=== PATIENT | male | born 1995 | race Caucasian/White ===

== ENCOUNTER 2019-03-10 07:29 | Inpatient (IN) | payer OTHER ==
[2019-03-10] MEDS ORDERED: ONDANSETRON 4 MG/2 ML VIAL IVP STA (07:55)
[2019-03-10] MEDS ORDERED: SODIUM CHLORIDE 0.9% 1,000 ML IV STA (07:55)
[2019-03-10] MEDS ORDERED: SODIUM CHLORIDE 0.9% 500 ML 500 ML IV STA (07:55)
[2019-03-10 08:12] LABS: Basophils % (A) 0 %; Eosinophils # (A) 0.1 k/uL (0-0.7); Eosinophils % (A) 1 %; HCT 45.3 % (39.0-53.0); HGB 15.7 gm/dL (13.0-17.5); Lymphocytes # (A) 0.8 k/uL (1.0-4.8); Lymphocytes % (A) 6 %; MCH 32.3 pg (25.0-35.0); MCHC 34.7 g/dL (31.0-37.0); Mean Platelet Volume 6.3; Monocytes # (A) 0.7 k/uL (0-1.0); Monocytes % (A) 5 %; Neutrophils % (A) 86 %; Platelet Count 265 k/uL (150-450); RBC 4.87 m/uL (4.30-5.90); RDW 12.5 % (11.5-15.5); WBC 13.9 k/uL (3.8-10.6)
--- NOTE | 2019-03-10 08:18 | ED ---
Chest Pain HPI - General Source: patient, family, RN notes reviewed Mode of arrival: wheelchair Limitations: no limitations <Louis Lainez - Last Filed: 03/10/19 08:37> <Raghavendra Britton - Last Filed: 03/10/19 08:44> - General Chief Complaint: Chest Pain Stated Complaint: Chest pain/lt arm pain Time Seen by Provider: 03/10/19 07:44 - History of Present Illness Initial Comments: This is a 24-year-old male presents emergency Department with chief complaint chest pain, nausea vomiting. Patient states symptoms started on Sunday with some nausea vomiting diarrhea and he felt that it was related to chicken salad which he ate. Patient states that he did not feel well woke up Sunday still did not feel well but improved throughout the day. Patient states he returned yesterday and he woke up with chest pain today. Patient states he feels very achy had severe chest pain in which he states it was so intense he could not breathe. Patient states that has improved some he did take some Motrin prior arrival. Patient states there is slight nausea currently no localized abdominal pain. Patient denies any known fever. Patient states he has a benign past medical history that he current medications known drug ALLERGIES. (Louis Lainez) - Related Data Allergies Allergy/AdvReac Type Severity Reaction Status Date / Time No Known Allergies Allergy Verified 03/10/19 07:37 Review of Systems ROS Other: All systems not noted in ROS Statement are negative. <Louis Lainez - Last Filed: 03/10/19 08:37> ROS Other: All systems not noted in ROS Statement are negative. <Raghavendra Britton - Last Filed: 03/10/19 08:44> ROS Statement: Those systems with pertinent positive or pertinent negative responses have been documented in the HPI. EKG Findings - EKG Comments: EKG Findings:: EKG: Normal sinus rhythm with sinus arrhythmia, ST segment elevation in the lateral precordial leads as well as lead 1, 2, aVL. There is DC depression in lead 1 and lead II <Raghavendra Britton - Last Filed: 03/10/19 08:44> Past Medical History Past Medical History: No Reported History Additional Past Medical History / Comment(s): fx left arm History of Any Multi-Drug Resistant Organisms: None Reported Past Surgical History: No Surgical Hx Reported Smoking Status: Current every day smoker Past Alcohol Use History: None Reported Past Drug Use History: None Reported <MigelLouis - Last Filed: 03/10/19 08:37> General Exam Limitations: no limitations General appearance: alert, in no apparent distress Head exam: Present: atraumatic, normocephalic, normal inspection Eye exam: Present: normal appearance, PERRL, EOMI. Absent: scleral icterus, conjunctival injection, periorbital swelling ENT exam: Present: normal exam, normal oropharynx, mucous membranes moist Neck exam: Present: normal inspection. Absent: tenderness, meningismus, lymphadenopathy Respiratory exam: Present: normal lung sounds bilaterally. Absent: respiratory distress, wheezes, rales, rhonchi, stridor Cardiovascular Exam: Present: regular rate, normal rhythm, normal heart sounds. Absent: systolic murmur, diastolic murmur, rubs, gallop, clicks GI/Abdominal exam: Present: soft, normal bowel sounds. Absent: distended, tenderness, guarding, rebound, rigid Neurological exam: Present: alert, oriented X3 Skin exam: Present: warm, dry, intact, normal color. Absent: rash <Louis Lainez - Last Filed: 03/10/19 08:37> Course <Raghavendra Britton - Last Filed: 03/10/19 08:44> Vital Signs 03/10/19 07:33 Temperature 97.4 F L Pulse Rate 74 Respiratory 18 Rate Blood Pressure 104/71 O2 Sat by Pulse 100 Oximetry - Reevaluation(s) Reevaluation #1: 03/10/19 08:08 Case discussed with cardiology Dr. Patel, regarding EKG changes. Recommends stat echo. (Raghavendra Britton) Chest Pain MDM <Louis Lainez - Last Filed: 03/10/19 08:37> <Raghavendra Britton - Last Filed: 03/10/19 08:44> - MDM 24-year-old male presented for chest pain, nausea vomiting viral illness. Patient EKG shows some ST elevation. Impressions. There, I did discuss case with Dr. Serna Cardiologists and which the patient was evaluated in the [facility] department by Fatimah laureano. Patient's symptoms are consistent with pericarditis. Patient will be admitted at this time for further evaluation. (Louis Lainez) Patient presenting with nausea vomiting and development of chest pain over the past 24 hours. Pain is sharp. Radiates to his left arm. It was significantly improved with Motrin at home. His EKG is concerning showing diffuse ST segment elevation and DC depression. Given the patient's age and presenting signs and symptoms of suspect this is likely pericarditis. I discussed case with cardiology initiated workup including laboratory testing, chest x-ray, stat echo. Patient will be admitted awaiting laboratory testing. He was evaluated by cardiology in the emergency department. Case discussed with Dr. Brady, regarding admission. (Raghavendra Britton) Disposition <Louis Lainez - Last Filed: 03/10/19 08:37> Is patient prescribed a controlled substance at d/c from ED?: No Decision to Admit Reason: Admit from EC Decision Date: 03/10/19 Decision Time: 08:44 <Raghavendra Britton - Last Filed: 03/10/19 08:44> Clinical Impression: Acute pericarditis Disposition: ADMITTED IP TO THIS [facility] Condition: Stable Referrals: Hi Lanier MD [Primary Care Provider] - 1-2 days
[2019-03-10 08:22] LABS: ALT 24 U/L (21-72); AST 56 U/L (17-59); African American GFR (CKD) >90 (>60 ml/min/1.73 sqM); Albumin 4.1 g/dL (3.5-5.0); Alkaline Phosphatase 92 U/L (38-126); Anion Gap 11 mmol/L; Blood Urea Nitrogen 12 mg/dL (9-20); Calcium 9.5 mg/dL (8.4-10.2); Carbon Dioxide 27 mmol/L (22-30); Chloride 102 mmol/L (98-107); Glucose 133 mg/dL (74-99); Magnesium 1.8 mg/dL (1.6-2.3); Non-African American GFR(CKD) >90 (>60 ml/min/1.73 sqM); Sodium 140 mmol/L (137-145); Total Bilirubin 1.8 mg/dL (0.2-1.3); Total Protein 7.4 g/dL (6.3-8.2)
[2019-03-10] MEDS ORDERED: ONDANSETRON 4 MG/2 ML VIAL IVP PRN (08:39)
[2019-03-10 08:41] LABS: Partial Thromboplastin Time 23.3 sec (22.0-30.0); Prothrombin Time 10.3 sec (9.0-12.0)
--- NOTE | 2019-03-10 08:41 | XR ---
EXAMINATION TYPE: XR chest 1V DATE OF EXAM: 03/10/2019 COMPARISON: NONE HISTORY: Nausea, vomiting, and chest pain for one week TECHNIQUE: Single frontal view of the chest is obtained. FINDINGS: There is no focal air space opacity, pleural effusion, or pneumothorax seen. The cardiac silhouette size is within normal limits. The osseous structures are intact. IMPRESSION: No acute process.
[2019-03-10] MEDS ORDERED: IBUPROFEN 600 MG TAB PO STA (08:52)
--- NOTE | 2019-03-10 08:54 | P.CRDCN ---
History of Present Illness Consult date: 03/10/19 Consult reason: chest pain Chief complaint: Chest pain History of present illness: This is a pleasant 24-year-old gentleman who has no prior documented history of hypertension, no diabetes, no hyperlipidemia, he is a nonsmoker, presents to the hospital with symptoms of midsternal chest pain with associated shortness of breath. He states that the pain started on Sunday, preceding that patient did have an entire night of vomiting and diarrhea, he also complained of feeling chilled. Patient has been taking ibuprofen on a daily basis, he states that it did help temporarily with the pain, pain he was having the sharp in nature, worsened significantly when he took a deep breath, he also states that he felt pain in his left arm. Because of the persistence of the symptoms, along with the fact that he now became short of breath he came to the emergency room for further evaluation and treatment. EKG performed in the emergency room showed a normal sinus rhythm with some ST elevation noted in the lateral leads, lead 2, and mild elevation in the anterior leads. There was also some MD depression noted in the lateral leads. Chest x-ray was normal. Blood pressure 104/70 with a heart rate in the 70s, 100% on room air. Afebrile. White blood cell count is elevated at 13.9, hemoglobin 15.7, platelet count 265. D-dimer 0.28. Sodium 140, potassium 4.0, BUN 12, creatinine 0.8. Magnesium 1.8. Total bilirubin 1.8. AST and ALT are normal. C-reactive protein elevated at 40.7. Sedimentation rate in troponin have been ordered, no results on those as of yet. A stat echocardiogram with Doppler study has also been requested. At the time of my examination this morning he denies having any chest discomfort, he did state that he took some ibuprofen prior to coming to the emergency room. He does feel chilled this morning. Past Medical History Past Medical History: No Reported History Additional Past Medical History / Comment(s): fx left arm History of Any Multi-Drug Resistant Organisms: None Reported Past Surgical History: No Surgical Hx Reported Smoking Status: Current every day smoker Past Alcohol Use History: None Reported Past Drug Use History: None Reported Medications and Allergies Allergies Allergy/AdvReac Type Severity Reaction Status Date / Time No Known Allergies Allergy Verified 03/10/19 07:37 Physical Exam Vitals: Vital Signs Temp Pulse Resp BP Pulse Ox 03/10/19 07:33 97.4 F L 74 18 104/71 100 Intake and Output 03/09/19 03/10/19 03/10/19 22:59 06:59 14:59 Other: Weight 90.718 kg PHYSICAL EXAMINATION: GENERAL: 24-year-old gentleman in no acute distress at the time of my examination HEENT: Head is atraumatic, normocephalic. Pupils equal, round. Sclera anicteric. Conjunctiva are clear. Mucous membranes of the mouth are moist. Neck is supple. There is no elevated jugular venous pressure. No carotid brui t is heard. HEART EXAMINATION: Heart S1, S2 systolic murmur. CHEST EXAMINATION: Lungs are clear to auscultation and precussion. No chest wall tenderness is noted on palpation or with deep breathing. ABDOMEN: Soft, nontender. Bowel sounds are heard. No organomegaly noted. EXTREMITIES: 2+ peripheral pulses with no evidence of peripheral edema and no calf tenderness noted. NEUROLOGIC patient is awake, alert and oriented 3 . . Results 03/10/19 08:00 03/10/19 08:00 Cardiac Enzymes 03/10/19 Range/Units 08:00 AST 56 (17-59) U/L Coagulation 03/10/19 Range/Units 08:00 PT 10.3 (9.0-12.0) sec APTT 23.3 (22.0-30.0) sec CBC 03/10/19 Range/Units 08:00 WBC 13.9 H (3.8-10.6) k/uL RBC 4.87 (4.30-5.90) m/uL Hgb 15.7 (13.0-17.5) gm/dL Hct 45.3 (39.0-53.0) % Plt Count 265 (150-450) k/uL Comprehensive Metabolic Panel 03/10/19 Range/Units 08:00 Sodium 140 (137-145) mmol/L Potassium 4.0 (3.5-5.1) mmol/L Chloride 102 (98-107) mmol/L Carbon Dioxide 27 (22-30) mmol/L BUN 12 (9-20) mg/dL Creatinine 0.88 (0.66-1.25) mg/dL Glucose 133 H (74-99) mg/dL Calcium 9.5 (8.4-10.2) mg/dL AST 56 (17-59) U/L ALT 24 (21-72) U/L Alkaline Phosphatase 92 (38-126) U/L Total Protein 7.4 (6.3-8.2) g/dL Albumin 4.1 (3.5-5.0) g/dL Current Medications Generic Name Dose Route Start Last Admin Trade Name Freq PRN Reason Stop Dose Admin Sodium Chloride 1,000 mls @ 999 mls/hr 03/10/19 07:55 03/10/19 08:18 Saline 0.9% IV 03/10/19 08:55 999 mls/hr .Q1H1M STA Administration Ondansetron HCl 4 mg 03/10/19 08:39 Zofran IVP Q8HR PRN Nausea And Vomiting Intake and Output 03/09/19 03/10/19 03/10/19 22:59 06:59 14:59 Other: Weight 90.718 kg Patient Weight 03/11/19 06:59 Weight 90.718 kg 03/10/19 08:00 03/10/19 08:00 EKG Interpretations (text) EKG on presentation here showed normal sinus rhythm with ST elevation noted in the lateral leads, there is some inferior ST elevation noted in V2 and mild anterior ST elevation with a mild MD depression noted in the lateral leads. Assessment and Plan Plan: Assessment and plan #1 symptoms of sharp chest pain with radiation into the left arm, pleuritic in nature, associated with recent vomiting and diarrhea, possible viral illness, possible viral pericarditis #2 significant vomiting and diarrhea with associated chills Plan We will obtain a stat echocardiogram with Doppler study, we will also request a stat sed rate to be obtained, troponins have been ordered, we will start the patient on nonsteroidals along with colchicine. Further recommendations to follow. DNP note has been reviewed, I agree with a documented findings and plan of care. Patient was seen and examined.
[2019-03-10] MEDS: COLCHICINE 0.6 MG EACH PO SCH ×2 (10:58→20:28)
--- NOTE | 2019-03-10 13:45 | ECHOF ---
Referral Reason:Chest pain MEASUREMENTS -------- HEIGHT: 188.0 cm WEIGHT: 90.7 kg BP: RVIDd: 2.5 cm (< 3.3) IVSd: 0.9 cm (0.6 - 1.1) LVIDd: 5.2 cm (3.9 - 5.3) LVPWd: 1.1 cm (0.6 - 1.1) IVSs: 1.4 cm LVIDs: 3.8 cm LVPWs: 1.6 cm LA Diam: 3.3 cm (2.7 - 3.8) LAESV Index (A-L): 22.19 ml/m Ao Diam: 3.0 cm (2.0 - 3.7) AV Cusp: 2.2 cm (1.5 - 2.6) MV EXCURSION: 20.022 mm (> 18.000) MV EF SLOPE: 163 mm/s (70 - 150) EPSS: 0.6 cm MV E Silverio: 0.85 m/s MV DecT: 135 ms MV A Silverio: 0.78 m/s MV E/A Ratio: 1.08 RAP: 5.00 mmHg RVSP: 22.70 mmHg TAPSE: 17.70 mm FINDINGS -------- Sinus rhythm. This was a technically good study. The left ventricular size is normal. There is mild concentric left ventricular hypertrophy. Overa ll left ventricular systolic function is mild-moderately impaired with, an EF between 40 - 45 %. The right ventricle is mildly enlarged. Normal LA size by volume 22+/-6 ml/m2. The right atrium is normal in size. Interatrial and interventricular septum intact. The aortic valve is trileaflet and appears structurally normal. The mitral valve leaflets are mildly thickened. Moderate mitral regurgitation is present. Mild tricuspid regurgitation present. Right ventricular systolic pressure is normal at < 35 mmHg. There is no pulmonic regurgitation present. The aortic root size is normal. Normal inferior vena cava with less than 50% inspiratory collapse consistent with estimated right atr ial pressure of 15 mmHg. The inferior vena cava is mildly dilated. There is no pericardial effusion. CONCLUSIONS -------- 1. Sinus rhythm. 2. This was a technically good study. 3. The left ventricular size is normal. 4. There is mild concentric left ventricular hypertrophy. 5. Overall left ventricular systolic function is mild-moderately impaired with, an EF between 40 - 45 %. 6. The right ventricle is mildly enlarged. 7. Normal LA size by volume 22+/-6 ml/m2. 8. The right atrium is normal in size. 9. Interatrial and interventricular septum intact. 10. The aortic valve is trileaflet and appears structurally normal. 11. The mitral valve leaflets are mildly thickened. 12. Moderate mitral regurgitation is present. 13. Mild tricuspid regurgitation present. 14. Right ventricular systolic pressure is normal at < 35 mmHg. 15. There is no pulmonic regurgitation present. 16. The aortic root size is normal. 17. Normal inferior vena cava with less than 50% inspiratory collapse consistent with estimated right atrial pressure of 15 mmHg. 18. The inferior vena cava is mildly dilated. 19. There is no pericardial effusion. RESEARCH CHEMIST: Yamile Pham RDCS
--- NOTE | 2019-03-10 16:55 | P.HPIM ---
History of Present Illness H&P Date: 03/10/19 Chief Complaint: Chest pain, left arm weakness, nausea, vomiting,SOB This is a 24-year-old gentleman with a benign past medical history, presented to the ER with complaints of nausea, vomiting, chest pain, shortness of breath, left arm pain. Symptoms originated on Sunday night after eating a chicken salad, though he had food poisoning. Symptoms continued into Sunday with nausea, bloating, diarrhea accompanied by migraine headache and further development of sharp chest pain, later that night. Sunday morning continued to have sharp chest pain accompanied by significant shortness of breath, left arm weakness and difficulty talking. Symptoms worsened with inspiration Consumed Motrin and Proceeded to the ER. Prior to the ER. Positive chills, Denies fever. EKG reporting sinus rhythm with sinus arrhythmia, ST segment elevation in the lateral leads as well as leads 1,2 and aVL. Depression leads 1 and 2. Chest x-ray reported no acute process, no pleural effusion, no pneumothorax. Echo reporting mild to-moderately impaired LV function with EF 40-45%, moderate mitral regurgitation. Afebrile, WBC 13.9, vital signs stable, maintaining O2 sats in the high 90s on room air. T bili 1.8, troponin 5.130, C-reactive protein 40.7. Cardiology consulted. Maintained on IV fluid hydration. Colchicine, ibuprofen initiated. Review of Systems ROS Other: All systems not noted in ROS Statement are negative. ROS Statement: Those systems with pertinent positive or pertinent negative responses have been documented in the HPI. Past Medical History Past Medical History: No Reported History Additional Past Medical History / Comment(s): fx left arm History of Any Multi-Drug Resistant Organisms: None Reported Past Surgical History: No Surgical Hx Reported Additional Past Surgical History / Comment(s): L arm fracture with 2 settings with anesthesia. Past Anesthesia/Blood Transfusion Reactions: No Reported Reaction Smoking Status: Never smoker - Past Family History Father Family Medical History: Hyperlipidemia, Hypertension Mother Additional Family Medical History / Comment(s): Recovering alcoholic, PTSD Medications and Allergies Home Medications Medication Instructions Recorded Confirmed Type No Known Home Medications 03/10/19 03/10/19 History Allergies Allergy/AdvReac Type Severity Reaction Status Date / Time No Known Allergies Allergy Verified 03/10/19 08:59 Physical Exam Vitals: Vital Signs Temp Pulse Pulse Resp BP BP Pulse Ox 03/10/19 11:52 96 16 95/63 99 03/10/19 08:37 70 18 102/78 98 03/10/19 07:33 97.4 F L 74 18 104/71 100 Intake and Output 03/09/19 03/10/19 03/10/19 22:59 06:59 14:59 Other: Weight 90.718 kg PHYSICAL EXAM: VITAL SIGNS: As above GENERAL: Sitting up in stretcher, no acute distress HEENT: Conjunctivae normal. eyes normal. NECK: No JVD. No thyroid enlargement. No LNs CARDIOVASCULAR: S1, S2 regular. Systolic murmur RESPIRATION: Breath sounds diminished in the bases. No rhonchi or crackles. No bronchial breathing. No chest wall tenderness ABDOMEN: Soft, nontender . No guarding. no masses palpable. No ascites, No hepatosplenomegaly.Bowel sounds heard. LEGS: No edema. no swelling PSYCHIATRY: Alert and oriented X3, mood and affect normal. NERVOUS SYSTEM: Cranial N 2-12 grossly normal. Moves all 4 limbs. No focal deficits. Strength and sensation grossly intact.. Skin: no lesions, no rash Joints: No active swelling. No inflammation. Lymphatic system. No LN neck axilla. Results CBC & Chem 7: 03/10/19 08:00 03/10/19 08:00 Labs: Abnormal Lab Results - Last 24 Hours (Table) 03/10/19 03/10/19 03/10/19 Range/Units 08:00 08:00 08:00 WBC 13.9 H (3.8-10.6) k/uL Neutrophils # 12.0 H (1.3-7.7) k/uL Lymphocytes # 0.8 L (1.0-4.8) k/uL Glucose 133 H (74-99) mg/dL Total Bilirubin 1.8 H (0.2-1.3) mg/dL Troponin I 5.130 H* (0.000-0.034) ng/mL C-Reactive Protein (<10.0) mg/L 03/10/19 Range/Units 08:00 WBC (3.8-10.6) k/uL Neutrophils # (1.3-7.7) k/uL Lymphocytes # (1.0-4.8) k/uL Glucose (74-99) mg/dL Total Bilirubin (0.2-1.3) mg/dL Troponin I (0.000-0.034) ng/mL C-Reactive Protein 40.7 H (<10.0) mg/L Thrombosis Risk Factor Assmnt - Choose All That Apply Any of the Below Risk Factors Present?: No Other Risk Factors: No Other congenital or acquired thrombophilia - If yes, enter type in comment: No Thrombosis Risk Factor Assessment Level: Very Low Risk Assessment and Plan Assessment: Acute pericarditis, possibly viral pericarditis Mild to-moderately impaired LV function with EF 40-45%, moderate mitral regurgitation per echo Plan: Continue on current medication regime, monitoring and symptomatically treatment. Maintain IV fluid hydration, ibuprofen and colchicine. Rule out influenza A/B. GI prophylaxis with Protonix. The impression and plan of care has been dictated as directed. : I performed a history and examination of this patient, discussed the same with the dictator. I agree with the dictator's note ,documented as a scribe. Any additional findings or plans will be noted.
[2019-03-10] MEDS: PANTOPRAZOLE 40 MG/10 ML VIAL IVP SCH (17:12)
[2019-03-10] MEDS: IBUPROFEN 600 MG TAB PO SCH ×2 (17:13→20:28)
[2019-03-10 17:24] LABS: Appearance,Urine Clear (Clear); Bilirubin,Urine Negative (Negative); Blood,Urine Negative (Negative); Color,Urine Yellow; Glucose,Urine (UA) 1+ (Negative); Ketones,Urine 1+ (Negative); Leukocyte Esterase,Urine Negative (Negative); Nitrite,Urine Negative (Negative); Protein,Urine Trace (Negative); Specific Gravity,Urine 1.016 (1.001-1.035)
[2019-03-11 06:25] LABS: Basophils % (A) 0 %; Eosinophils # (A) 0.1 k/uL (0-0.7); Eosinophils % (A) 2 %; HCT 39.8 % (39.0-53.0); HGB 13.8 gm/dL (13.0-17.5); Lymphocytes # (A) 1.7 k/uL (1.0-4.8); Lymphocytes % (A) 29 %; MCH 32.9 pg (25.0-35.0); MCHC 34.7 g/dL (31.0-37.0); MCV 94.8 fL (80.0-100.0); Mean Platelet Volume 7.4; Monocytes # (A) 0.5 k/uL (0-1.0); Monocytes % (A) 7 %; Neutrophils # (A) 3.5 k/uL (1.3-7.7); Neutrophils % (A) 58 %; Platelet Count 226 k/uL (150-450); RDW 12.8 % (11.5-15.5); WBC 6.1 k/uL (3.8-10.6)
[2019-03-11 06:38] LABS: African American GFR (CKD) >90 (>60 ml/min/1.73 sqM); Anion Gap 6 mmol/L; Blood Urea Nitrogen 10 mg/dL (9-20); Calcium 8.9 mg/dL (8.4-10.2); Carbon Dioxide 27 mmol/L (22-30); Chloride 109 mmol/L (98-107); Glucose 93 mg/dL (74-99); Non-African American GFR(CKD) >90 (>60 ml/min/1.73 sqM); Potassium 4.1 mmol/L (3.5-5.1); Sodium 142 mmol/L (137-145)
[2019-03-11] MEDS: PANTOPRAZOLE 40 MG/10 ML VIAL IVP SCH (08:01)
[2019-03-11] MEDS: IBUPROFEN 600 MG TAB PO SCH ×3 (08:01→20:32)
[2019-03-11] MEDS: COLCHICINE 0.6 MG EACH PO SCH ×2 (08:02→20:32)
[2019-03-11] MEDS ORDERED: SODIUM CHLORIDE 0.9% 1,000 ML in EMPTY BAG 1 BAG IV ONE (11:45)
[2019-03-11] MEDS ORDERED: ALPRAZolam 0.5 MG TAB PO PRN (11:45)
[2019-03-11] MEDS ORDERED: ATORVASTATIN 80 MG TAB PO STA (11:45)
[2019-03-11] MEDS ORDERED: ASPIRIN 325 MG TAB PO STA (11:45)
[2019-03-11] MEDS ORDERED: ALPRAZolam 0.25 MG TAB PO PRN (11:45)
[2019-03-11] MEDS ORDERED: NITROGLYCERIN SL TABS 0.4 MG TAB SUBLINGUAL PRN (11:45)
--- NOTE | 2019-03-11 12:03 | PN ---
PROGRESS NOTE This patient was admitted with symptoms of chest pain which was suggestive of acute pericarditis and myocarditis. Echocardiogram reveals mild degree of generalized hypokinesia. The patient's initial troponin came back at 5.1. Repeat troponin is high at 4.4. The patient is feeling better. Chest pain is improved. C-reactive protein was elevated. Sedimentation rate was 15. Patient is feeling better. Repeat EKG shows some T-wave inversions in 1 and aVL. This patient's overall picture is suggestive of myopericarditis discussed with the family members, but in view of the significantly elevated troponin, we will recommend to proceed with a cardiac catheterization to rule out any underlying significant coronary artery disease. The procedure and the risks were fully explained to the patient and he understands well. The patient had an intermittent PVCs and some ventricular couplet. One episode of ventricular couplet was noted. We will start the patient on metoprolol 12.5 mg b.i.d. TUAN / ABHIJIT: [id number] /
[2019-03-11] MEDS: METOPROLOL TARTRATE 12.5 MG TAB PO SCH ×2 (12:47→20:32)
--- NOTE | 2019-03-11 15:51 | P.PN ---
Subjective Progress Note Date: 03/11/19 This is a 24-year-old gentleman with a benign past medical history, presented to the ER with complaints of nausea, vomiting, chest pain, shortness of breath, left arm pain. Symptoms originated on Sunday night after eating a chicken salad, though he had food poisoning. Symptoms continued into Sunday with nausea, bloating, diarrhea accompanied by migraine headache and further development of sharp chest pain, later that night. Sunday morning continued to have sharp chest pain accompanied by significant shortness of breath, left arm weakness and difficulty talking. Symptoms worsened with inspiration Consumed Motrin and Proceeded to the ER. Prior to the ER. Positive chills, Denies fever. EKG reporting sinus rhythm with sinus arrhythmia, ST segment elevation in the lateral leads as well as leads 1,2 and aVL. Depression leads 1 and 2. Chest x-ray reported no acute process, no pleural effusion, no pneumothorax. Echo reporting mild to-moderately impaired LV function with EF 40-45%, moderate mitral regurgitation. Afebrile, WBC 13.9, vital signs stable, maintaining O2 sats in the high 90s on room air. T bili 1.8, troponin 5.130, C-reactive protein 40.7. Cardiology consulted. Maintained on IV fluid hydration. Colchicine, ibuprofen initiated. 03/11/2019 Feeling better today, denies chest pain, palpitations or shortness of breath. Repeat troponin 4.4, elevated C-reactive protein, sed rate 15. Repeat EKG ordered reported as T-wave inversions in 1 and aVL per cardiology suggestive of myopericarditis. Telemetry reporting PVCs, couplets. Beta kenji initiated as per cardiology. Scheduled for cardiac catheterization tomorrow. Objective - Vital Signs Vital signs: Vital Signs Temp 97.7 F 03/11/19 08:00 Pulse 97 03/11/19 08:00 Resp 16 03/11/19 08:00 BP 103/52 03/11/19 08:00 Pulse Ox 99 03/11/19 08:00 Intake & Output 03/10/19 03/11/19 03/11/19 18:59 06:59 18:59 Intake Total 240 Balance 240 Weight 90.718 kg 91.7 kg Intake: Oral 240 Other: # Voids 1 2 - Exam VITAL SIGNS: As above GENERAL: Sitting up in stretcher, no acute distress HEENT: Conjunctivae normal. eyes normal. NECK: No JVD. No thyroid enlargement. No LNs CARDIOVASCULAR: S1, S2 regular. Systolic murmur RESPIRATION: Breath sounds diminished in the bases. No rhonchi or crackles. No bronchial breathing. No chest wall tenderness ABDOMEN: Soft, nontender . No guarding. no masses palpable. No ascites, No hepatosplenomegaly.Bowel sounds heard. LEGS: No edema. no swelling PSYCHIATRY: Alert and oriented X3, mood and affect normal. NERVOUS SYSTEM: Cranial N 2-12 grossly normal. Moves all 4 limbs. No focal deficits. Strength and sensation grossly intact.. Skin: no lesions, no rash Joints: No active swelling. No inflammation. Lymphatic system. No LN neck axilla. - Labs CBC & Chem 7: 03/11/19 05:45 03/11/19 05:45 Labs: Abnormal Lab Results - Last 24 Hours (Table) 03/10/19 03/11/19 03/11/19 Range/Units 14:59 05:45 05:45 RBC 4.20 L (4.30-5.90) m/uL Chloride 109 H (98-107) mmol/L Urine Protein Trace H (Negative) Urine Glucose (UA) 1+ H (Negative) Urine Ketones 1+ H (Negative) Assessment and Plan Assessment: Acute myopericarditis, possibly viral pericarditis Mild to-moderately impaired LV function with EF 40-45%, moderate mitral regurgitation per echo Plan: Continue on current medication regime, monitoring and symptomatically treatment. Scheduled for cardiac catheterization tomorrow. Continue on IV fluid hydration, ibuprofen and colchicine. Follow closely with cardiology. The impression and plan of care has been dictated as directed. : I performed a history and examination of this patient, discussed the same with the dictator. I agree with the dictator's note ,documented as a scribe. Any additional findings or plans will be noted.
[2019-03-11] MEDS ORDERED: Magnesium Replacement Protocol 1 EACH MISC MISCELLANE PRN (19:02)
[2019-03-12] MEDS: METOPROLOL TARTRATE 12.5 MG TAB PO SCH ×2 (05:29→21:30)
[2019-03-12] MEDS: PANTOPRAZOLE 40 MG/10 ML VIAL IVP SCH (05:29)
[2019-03-12] MEDS ORDERED: ASPIRIN 325 MG TAB PO ONE (06:00)
[2019-03-12] MEDS ORDERED: ATORVASTATIN 80 MG TAB PO ONE (06:00)
[2019-03-12] MEDS: COLCHICINE 0.6 MG EACH PO SCH ×2 (06:03→21:30)
[2019-03-12] MEDS: IBUPROFEN 600 MG TAB PO SCH ×3 (10:58→21:27)
[2019-03-12] MEDS ORDERED: VERAPAMIL 2.5 MG/ML 2 ML AMP ONE (14:05)
[2019-03-12] MEDS ORDERED: LIDOCAINE 1% INJ 10MG/ML (20 ML MDV) ONE (14:05)
[2019-03-12] MEDS ORDERED: fentaNYL (PF) 50 MCG/ML 2 ML AMP ONE (14:05)
[2019-03-12] MEDS ORDERED: IV FLUID CONTINUATION 1,000 ML IV ONE (14:05)
[2019-03-12] MEDS ORDERED: fentaNYL (PF) 50 MCG/ML 2 ML AMP IV ONE (14:18)
[2019-03-12] MEDS ORDERED: MIDAZOLAM 2 MG/2 ML VIAL IV ONE (14:19)
[2019-03-12] MEDS ORDERED: HEPARIN SODIUM 1,000 UN/ML (10ML VL) ONE (14:20)
[2019-03-12] MEDS ORDERED: LIDOCAINE 1% INJ 10MG/ML (20 ML MDV) SQ ONE (14:21)
[2019-03-12] MEDS: VERAPAMIL SYRINGE (5 MG/10 ML) INTRAARTER ONE ×2 (14:23→14:31)
[2019-03-12] MEDS ORDERED: HYDROmorphone 1 MG/ML 1 ML SYRINGE ONE (14:24)
[2019-03-12] MEDS ORDERED: HEPARIN SODIUM 1,000 UN/ML (10ML VL) IV ONE (14:25)
[2019-03-12] MEDS ORDERED: HYDROmorphone 1 MG/ML 1 ML SYRINGE IVP ONE (14:26)
[2019-03-12] MEDS ORDERED: IOPAMIDOL-370 150ML BTL INJ ONE (14:31)
[2019-03-12] MEDS ORDERED: RX INFO: IV CONTRAST WAS GIVEN 1 EACH MISC MISCELLANE PRN (14:36)
[2019-03-12] MEDS ORDERED: SODIUM CHLORIDE 0.9% 1,000 ML IV SCH (14:45)
--- NOTE | 2019-03-12 15:47 | P.PN ---
Subjective Progress Note Date: 03/12/19 This is a 24-year-old gentleman with a benign past medical history, presented to the ER with complaints of nausea, vomiting, chest pain, shortness of breath, left arm pain. Symptoms originated on Sunday night after eating a chicken salad, though he had food poisoning. Symptoms continued into Sunday with nausea, bloating, diarrhea accompanied by migraine headache and further development of sharp chest pain, later that night. Sunday morning continued to have sharp chest pain accompanied by significant shortness of breath, left arm weakness and difficulty talking. Symptoms worsened with inspiration Consumed Motrin and Proceeded to the ER. Prior to the ER. Positive chills, Denies fever. EKG reporting sinus rhythm with sinus arrhythmia, ST segment elevation in the lateral leads as well as leads 1,2 and aVL. Depression leads 1 and 2. Chest x-ray reported no acute process, no pleural effusion, no pneumothorax. Echo reporting mild to-moderately impaired LV function with EF 40-45%, moderate mitral regurgitation. Afebrile, WBC 13.9, vital signs stable, maintaining O2 sats in the high 90s on room air. T bili 1.8, troponin 5.130, C-reactive protein 40.7. Cardiology consulted. Maintained on IV fluid hydration. Colchicine, ibuprofen initiated. 03/11/2019 Feeling better today, denies chest pain, palpitations or shortness of breath. Repeat troponin 4.4, elevated C-reactive protein, sed rate 15. Repeat EKG ordered reported as T-wave inversions in 1 and aVL per cardiology suggestive of myopericarditis. Telemetry reporting PVCs, couplets. Beta kenji initiated as per cardiology. Scheduled for cardiac catheterization tomorrow. 03/12/2019 denies chest pain, palpitations or shortness of breath. Denies lightheadedness, dizziness or focal deficits. NPO.Scheduled for cardiac cath today. Objective - Vital Signs Vital signs: Vital Signs Temp 98.1 F 03/12/19 14:51 Pulse 71 03/12/19 14:51 Resp 18 03/12/19 14:51 BP 110/60 03/12/19 15:21 Pulse Ox 99 03/12/19 14:51 Intake & Output 03/11/19 03/12/19 03/12/19 18:59 06:59 18:59 Intake Total 1040 1000 100 Balance 1040 1000 100 Weight 89.3 kg Intake: IV 100 Intake, IV Titration 1000 Amount Sodium Chloride 0.9% 1, 1000 000 ml In Empty Bag 1 bag @ 1 ML/KG/HR 91.7 mls/hr IV .[id number] ONE Rx#: [id number] Oral 1040 Other: # Voids 1 1 - Exam VITAL SIGNS: As above GENERAL: Sitting up in bed, no acute distress HEENT: Conjunctivae normal. eyes normal. Oral mucosa dry NECK: No JVD. No thyroid enlargement. No LNs CARDIOVASCULAR: S1, S2 regular. Systolic murmur RESPIRATION: Breath sounds diminished in the bases. No rhonchi or crackles. ABDOMEN: Soft, nontender . No guarding. no masses palpable. Bowel sounds heard. LEGS: No edema. no swelling PSYCHIATRY: Alert and oriented X3, mood and affect normal. NERVOUS SYSTEM: Cranial N 2-12 grossly normal. Moves all 4 limbs. No focal deficits. Strength and sensation grossly intact.. Skin: no lesions - Labs CBC & Chem 7: 03/11/19 05:45 03/11/19 05:45 Assessment and Plan Assessment: Acute myopericarditis, possibly viral pericarditis Mild to-moderately impaired LV function with EF 40-45%, moderate mitral regurgitation per echo Plan: Continue on current medication regime, monitoring and symptomatically treatment. Cardiac catheterization pending. Continue on IV fluid hydration, ibuprofen and colchicine. Follow closely with cardiology. The impression and plan of care has been dictated as directed. : I performed a history and examination of this patient, discussed the same with the dictator. I agree with the dictator's note ,documented as a scribe. Any additional findings or plans will be noted.
--- NOTE | 2019-03-12 16:13 | CC ---
CARDIAC CATHETERIZATION REPORT DATE OF SERVICE: 03/12/2019 PERFORMING PHYSICIAN: Gurinder Lauren M.D. PROCEDURES PERFORMED: 1. Selective right and left coronary angiogram. 2. Left heart catheterization. INDICATION: This is a 24-year-old gentleman who presented to the hospital with symptoms of chest discomfort as well as shortness of breath and ruled in for acute coronary event. He underwent an echocardiogram which revealed cardiomyopathy with EF between 40% and 45%. The cardiac enzymes were checked and came in to be elevated. He was seen by Dr. Patel, who recommended proceeding with coronary angiogram. APPROACH: Right radial artery. COMPLICATIONS: None. LEVEL OF SEDATION: Moderate, with a sedation length of 15 minutes. PROCEDURE DESCRIPTION: After obtaining informed consent, the patient was brought to the cardiac label rewinder. The right radial artery was cannulated using micropuncture technique under ultrasound guidance. The micropuncture wire passed easily. Then I placed a 5-Syriac sheath in the right radial artery. After that I gave the patient 2 mg of verapamil IA and 8000 units of heparin IV. After that I did selective right and left coronary angiogram using JR4 and JL3.5 catheters. Left heart catheterization was performed using 5-Syriac pigtail catheter. The procedure was completed without any complication. SELECTIVE CORONARY ANGIOGRAM: 1. The RCA is a large-caliber vessel and it is a dominant vessel. The proximal RCA is angiographically normal and gives rise to a small conus branch. The mid RCA is normal and gives rise to a small acute marginal branch. The RCA distally is normal and bifurcates into PDA and PLV branches. Both appeared to be angiographically normal. 2. The left main is a short left main. It bifurcates into left circumflex and left anterior descending artery. 3. The left circumflex is a large-caliber vessel. It is a nondominant vessel. The proximal circumflex appeared to be angiographically normal and gives rise to a large OM branch which trifurcates into 3 sub-branches. OM1 is angiographically normal. The circumflex continues after that as a moderate-caliber vessel in the AV groove. 4. The LAD is angiographically normal. In the mid portion it gives rise to 2 diagonal branches. Both appeared to be angiographically normal. Distally it does reach the apex. 5. HEMODYNAMICS: The LVEDP was about 16-18 mmHg without significant gradient across the aortic valve. CONCLUSION: 1. Normal coronary angiogram. 2. Short left main coronary artery. 3. Elevated left ventricular end-diastolic pressure. POST-PROCEDURE MANAGEMENT: 1. Maximize medical treatment. 2. Follow up with the patient. TUAN / ABHIJIT: [id number] /
[2019-03-13 06:59] LABS: Basophils % (A) 0 %; Eosinophils # (A) 0.2 k/uL (0-0.7); Eosinophils % (A) 3 %; HCT 44.4 % (39.0-53.0); HGB 14.8 gm/dL (13.0-17.5); Lymphocytes # (A) 1.7 k/uL (1.0-4.8); Lymphocytes % (A) 29 %; MCH 31.4 pg (25.0-35.0); MCHC 33.3 g/dL (31.0-37.0); MCV 94.3 fL (80.0-100.0); Monocytes # (A) 0.5 k/uL (0-1.0); Monocytes % (A) 8 %; Neutrophils # (A) 3.5 k/uL (1.3-7.7); Neutrophils % (A) 57 %; Platelet Count 267 k/uL (150-450); RBC 4.71 m/uL (4.30-5.90); RDW 12.3 % (11.5-15.5); WBC 6.1 k/uL (3.8-10.6)
[2019-03-13 07:09] LABS: African American GFR (CKD) >90 (>60 ml/min/1.73 sqM); Anion Gap 9 mmol/L; Blood Urea Nitrogen 10 mg/dL (9-20); Calcium 9.3 mg/dL (8.4-10.2); Carbon Dioxide 29 mmol/L (22-30); Chloride 103 mmol/L (98-107); Glucose 97 mg/dL (74-99); Non-African American GFR(CKD) >90 (>60 ml/min/1.73 sqM); Potassium 4.1 mmol/L (3.5-5.1); Sodium 141 mmol/L (137-145)
[2019-03-13] MEDS: COLCHICINE 0.6 MG EACH PO SCH (08:34)
[2019-03-13] MEDS: METOPROLOL TARTRATE 12.5 MG TAB PO SCH (08:34)
[2019-03-13] MEDS: PANTOPRAZOLE 40 MG/10 ML VIAL IVP SCH (08:35)
[2019-03-13] MEDS: IBUPROFEN 600 MG TAB PO SCH (08:40)
[2019-03-13 09:18] VITALS: RESP 20
[2019-03-13 11:47] VITALS: BP 126/62; PULSE 63; TEMP 98.5
[2019-03-13] MEDS ORDERED: METOPROLOL TARTRATE 25 MG TAB PO SCH (21:00)
[2019-03-14] MEDS ORDERED: PANTOPRAZOLE 40 MG TABLET PO SCH (07:30)
--- NOTE | 2019-03-14 15:14 | P.DS ---
Providers Date of admission: 03/10/19 08:40 Expected date of discharge: 03/14/19 Attending physician: Demarcus Brday Consults: 03/10/19 08:40 Consult Physician Routine Consulting Provider: Silvestre Patel Consult Reason/Comments: Pericarditis Do you want consulting provider notified?: Yes Primary care physician: Hi Lanier Hospital Course: Final Diagnoses: Acute myopericarditis, possibly viral pericarditis Mild to-moderately impaired LV function with EF 40-45%, moderate mitral regurgitation per echo Hospital course:This is a 24-year-old gentleman with a benign past medical history, presented to the ER with complaints of nausea, vomiting, chest pain, shortness of breath, left arm pain. Symptoms originated on Sunday night after eating a chicken salad, though he had food poisoning. Symptoms continued into Sunday with nausea, bloating, diarrhea accompanied by migraine headache and further development of sharp chest pain, later that night. Sunday morning continued to have sharp chest pain accompanied by significant shortness of breath, left arm weakness and difficulty talking. Symptoms worsened with inspiration Consumed Motrin and Proceeded to the ER. Prior to the ER. Positive chills, Denies fever. EKG reporting sinus rhythm with sinus arrhythmia, ST segment elevation in the lateral leads as well as leads 1,2 and aVL. Depression leads 1 and 2. Chest x-ray reported no acute process, no pleural effusion, no pneumothorax. Echo reporting mild to-moderately impaired LV function with EF 40-45%, moderate mitral regurgitation. Afebrile, WBC 13.9, vital signs stable, maintaining O2 sats in the high 90s on room air. T bili 1.8, troponin 5.130, C-reactive protein 40.7. Cardiology consulted. Maintained on IV fluid hydration. Colchicine, ibuprofen initiated. 03/11/2019 Feeling better today, denies chest pain, palpitations or shortness of breath. Repeat troponin 4.4, elevated C-reactive protein, sed rate 15. Repeat EKG ordered reported as T-wave inversions in 1 and aVL per cardiology suggestive of myopericarditis. Telemetry reporting PVCs, couplets. Beta kenji initiated as per cardiology. Scheduled for cardiac catheterization tomorrow. 03/12/2019 denies chest pain, palpitations or shortness of breath. Denies lightheadedness, dizziness or focal deficits. NPO.Scheduled for cardiac cath today. Cardiac catheterization reporting normal coronary angiogram, short left main coronary artery, elevated left ventricular end-diastolic pressure with maximizing medical treatment recommended.maintained on beta kenji, colchicine, ibuprofen. significant clinical improvement. Cleared by cardiology for discharge. Patient is being discharged home in a stable condition with guarded prognosis. The impression and plan of care has been dictated as directed. : I performed a history and examination of this patient, discussed the same with the dictator. I agree with the dictator's note ,documented as a scribe. Any additional findings or plans will be noted. Patient Condition at Discharge: Stable Plan - Discharge Summary Discharge Rx Participant: No New Discharge Prescriptions: New Colchicine [Colcrys] 0.6 mg PO BID #28 each Metoprolol Tartrate [Lopressor] 12.5 mg PO BID #28 tab Ibuprofen [Motrin] 600 mg PO TID #42 tab Pantoprazole Sodium [Protonix] 40 mg PO DAILY #14 tablet. Colchicine [Mitigare] 0.6 mg PO BID #56 capsule Discharge Medication List Colchicine [Colcrys] 0.6 mg PO BID #28 each 03/13/19 [Rx] Ibuprofen [Motrin] 600 mg PO TID #42 tab 03/13/19 [Rx] Metoprolol Tartrate [Lopressor] 12.5 mg PO BID #28 tab 03/13/19 [Rx] Pantoprazole Sodium [Protonix] 40 mg PO DAILY #14 tablet. 03/13/19 [Rx] Colchicine [Mitigare] 0.6 mg PO BID #56 capsule 03/14/19 [Rx] Follow up Appointment(s)/Referral(s): Hi Lanier MD [Primary Care Provider] - 03/19/19 10:00 am Silvestre Patel MD [STAFF PHYSICIAN] - 4 Weeks (Office will call with follow up appointment.) Patient Instructions/Handouts: Acute Pericarditis (DC), After Radial Heart Catheterization (GEN) Activity/Diet/Wound Care/Special Instructions: Off work till follow-up with either PCP or cardiology-please give patient note for work. Discharge/Stand Alone Forms: Work/School Release Discharge Disposition: HOME SELF-CARE
== END 2019-03-13 14:34 | disposition home or self-care (01) | DRG 287 ==
LOC: EC 07:29 → 3SCARD 08:40
PROVIDERS: ADMIT Family Medicine; ATTEND Family Medicine
PROC: 4A023N7 Measurement of Cardiac Sampling and Pressure, Left Heart, Percutaneous Approach (ICD-10-PCS; principal; 2019-03-12 07:30)
PROC: B2111ZZ Fluoroscopy of Multiple Coronary Arteries using Low Osmolar Contrast (ICD-10-PCS; principal; 2019-03-12 07:30)
DX: I30.1 Infective pericarditis (principal); I42.9 Cardiomyopathy, unspecified; I49.3 Ventricular premature depolarization; F17.200 Nicotine dependence, unspecified, uncomplicated; I34.0 Nonrheumatic mitral (valve) insufficiency; Z82.49 Family history of ischemic heart disease and other diseases of the circulatory system; Z83.438 Family history of other disorder of lipoprotein metabolism and other lipidemia; Z81.8 Family history of other mental and behavioral disorders
CPT/HCPCS: 36415; 71045; 76937; 80048; 80053; 81003; 83690; 83735; 84484; 85025; 85379; 85610; 85652; 85730; 86140; 87252; 87496; 87498; 87502; 87529; 87798; 93005; 93306; 93458; 96361; 96374; 99285

== ENCOUNTER → 2019-06-05 | Outpatient (CLI) | payer OTHER | END | disposition home or self-care (01) | LOC: LABWHC1 06:47 | PROVIDERS: ATTEND Internal Medicine Cardiovascular Disease | DX: I30.9 Acute pericarditis, unspecified (principal) | CPT/HCPCS: 36415; 85652; 86140 ==

== ENCOUNTER 2019-10-21 18:03 | Emergency (ER) | payer OTHER ==
[2019-10-21 18:06] VITALS: BP 143/87; PULSE 88; RESP 18; TEMP 98.3
--- NOTE | 2019-10-21 18:12 | ED ---
Animal Bite HPI - General Chief Complaint: Animal Bite Stated Complaint: [facility] animal bite Time Seen by Provider: 10/21/19 18:07 Source: patient, RN notes reviewed Mode of arrival: ambulatory Limitations: no limitations - History of Present Illness Initial Comments: 24-year-old male presented to the emergency Department with chief complaint of animal bite. Patient states he was pulling wire for his work and states he reached up into an attic when a squirrel bit his finger. He states he was sure it with a squirrel and not raccoon. Patient has a small thaddeus on his nail and finger. There is minimal bleeding tetanus up-to-date within last 5 years. - Related Data Previous Rx's Medication Instructions Recorded Colchicine [Colcrys] 0.6 mg PO BID #28 each 03/13/19 Ibuprofen [Motrin] 600 mg PO TID #42 tab 03/13/19 Metoprolol Tartrate [Lopressor] 12.5 mg PO BID #28 tab 03/13/19 Pantoprazole Sodium [Protonix] 40 mg PO DAILY #14 tablet. 03/13/19 Colchicine [Mitigare] 0.6 mg PO BID #56 capsule 03/14/19 Amoxicillin/Potassium Clav 1 tab PO Q12HR #14 tab 10/21/19 [Augmentin 875-125 Tablet] Allergies Allergy/AdvReac Type Severity Reaction Status Date / Time No Known Allergies Allergy Verified 10/21/19 18:06 Review of Systems ROS Statement: Those systems with pertinent positive or pertinent negative responses have been documented in the HPI. ROS Other: All systems not noted in ROS Statement are negative. Past Medical History Past Medical History: No Reported History Additional Past Medical History / Comment(s): fx left arm History of Any Multi-Drug Resistant Organisms: None Reported Past Surgical History: No Surgical Hx Reported Additional Past Surgical History / Comment(s): L arm fracture with 2 settings with anesthesia. Past Anesthesia/Blood Transfusion Reactions: No Reported Reaction Past Psychological History: No Psychological Hx Reported Smoking Status: Never smoker Past Alcohol Use History: Occasional Past Drug Use History: None Reported - Past Family History Father Family Medical History: Hyperlipidemia, Hypertension Mother Additional Family Medical History / Comment(s): Recovering alcoholic, PTSD General Exam Limitations: no limitations General appearance: alert, in no apparent distress Head exam: Present: atraumatic, normocephalic, normal inspection Neck exam: Present: normal inspection. Absent: tenderness, meningismus, lymphadenopathy Respiratory exam: Present: normal lung sounds bilaterally. Absent: respiratory distress, wheezes, rales, rhonchi, stridor Extremities exam: Present: other (Right hand third digit there is a small injuries of the nail, small puncture wound to the distal portion of his finger) Course Vital Signs 10/21/19 18:03 Temperature 98.3 F Pulse Rate 88 Respiratory 18 Rate Blood Pressure 143/87 O2 Sat by Pulse 100 Oximetry Medical Decision Making - Medical Decision Making Patient had small puncture wound from a squirrel. CDC recommendation is no treatment for rabies. Patient has no significant injury. Patient we discharged in stable condition. Disposition Clinical Impression: Bite by animal Disposition: HOME SELF-CARE Condition: Stable Instructions (If sedation given, give patient instructions): Animal Bite (ED) Additional Instructions: Please return to the Emergency Department if symptoms worsen or any other concerns. Prescriptions: Amoxicillin/Potassium Clav [Augmentin 875-125 Tablet] 1 tab PO Q12HR #14 tab Is patient prescribed a controlled substance at d/c from ED?: No Referrals: Hi Lanier MD [Primary Care Provider] - 1-2 days Time of Disposition: 18:12
== END 2019-10-21 18:18 | disposition home or self-care (01) ==
LOC: EC 18:03
DX: S61.332A Puncture wound without foreign body of right middle finger with damage to nail, initial encounter (principal); W53.21XA Bitten by squirrel, initial encounter; Y92.69 Other specified industrial and construction area as the place of occurrence of the external cause; Y99.0 Civilian activity done for income or pay
CPT/HCPCS: 99283

== ENCOUNTER 2020-02-12 15:29 | Emergency (ER) | payer OTHER ==
[2020-02-12 15:34] VITALS: BP 122/78; PULSE 92; RESP 18; TEMP 97.8
[2020-02-12] MEDS ORDERED: LIDOCAINE 1% INJ 10MG/ML (20 ML MDV) SQ ONE (16:05)
--- NOTE | 2020-02-12 16:13 | ED ---
General Adult HPI - General Chief complaint: Wound/Laceration Stated complaint: [facility]-thumb lac Time Seen by Provider: 02/12/20 15:42 Source: patient, RN notes reviewed Mode of arrival: wheelchair Limitations: no limitations - History of Present Illness Initial comments: 25-year-old male with a past medical history pericarditis presents to the emergency department for a chief complaint of laceration. Patient reports that he was drilling something in the hospital and cut his thumb and hand. Denies any difficulty moving his thumb or hand. Denies any loss of sensation. Patient is up-to-date on tetanus within the past 5 years. Denies any other injuries.Patient has no other complaints at this time including shortness of breath, chest pain, abdominal pain, nausea or vomiting, headache, or visual changes. - Related Data Previous Rx's Medication Instructions Recorded Cephalexin [Keflex] 500 mg PO Q6HR 5 Days #20 cap 02/12/20 Allergies Allergy/AdvReac Type Severity Reaction Status Date / Time No Known Allergies Allergy Verified 02/12/20 17:27 Review of Systems ROS Statement: Those systems with pertinent positive or pertinent negative responses have been documented in the HPI. ROS Other: All systems not noted in ROS Statement are negative. Past Medical History Past Medical History: No Reported History Additional Past Medical History / Comment(s): pericarditis History of Any Multi-Drug Resistant Organisms: None Reported Past Surgical History: No Surgical Hx Reported Additional Past Surgical History / Comment(s): L arm fracture with 2 settings with anesthesia. Past Anesthesia/Blood Transfusion Reactions: No Reported Reaction Past Psychological History: No Psychological Hx Reported Smoking Status: Never smoker Past Alcohol Use History: Occasional Past Drug Use History: None Reported - Past Family History Father Family Medical History: Hyperlipidemia, Hypertension Mother Additional Family Medical History / Comment(s): Recovering alcoholic, PTSD General Exam - General Exam Comments Initial Comments: Patient has a 3 cm laceration noted to the palmar aspect of the left thumb involving the distal and proximal phalanx. He also has a 2 cm laceration noted to the palmar aspect of the left hand near the fourth metacarpal head. No evidence of foreign bodies within either laceration. Radial pulses 2+ in the left upper extremity. Sensation intact. Patient has full range of motion of all digits of the left hand including the fourth digit and thumb. Limitations: no limitations General appearance: alert, in no apparent distress Head exam: Present: atraumatic, normocephalic, normal inspection Eye exam: Present: normal appearance, PERRL, EOMI. Absent: scleral icterus, conjunctival injection, periorbital swelling ENT exam: Present: normal exam, mucous membranes moist Neck exam: Present: normal inspection, full ROM. Absent: tenderness, meningismus Respiratory exam: Present: normal lung sounds bilaterally. Absent: respiratory distress, wheezes, rales, rhonchi, stridor Cardiovascular Exam: Present: regular rate, normal rhythm, normal heart sounds. Absent: systolic murmur, diastolic murmur, rubs, gallop, clicks GI/Abdominal exam: Present: soft, normal bowel sounds. Absent: distended, tenderness, guarding, rebound, rigid Course Vital Signs 02/12/20 02/12/20 02/12/20 15:31 16:34 17:57 Temperature 97.8 F 97.8 F Pulse Rate 92 92 Respiratory 18 18 18 Rate Blood Pressure 122/78 122/78 O2 Sat by Pulse 99 99 Oximetry Procedures - Laceration Laceration #1 Consent Obtained: verbal consent Indication: laceration Site: hand Size (cm): 4 Description: linear Depth: simple, single layer Anesthetic Used: lidocaine 1% Anesthesia Technique: nerve block Amount (mls): 10 Pre-repair: wound explored, irrigated extensively (saline pressure irrigation), deep structures intact (no evidence of tendon injury) Type of Sutures: nylon Size of Sutures: 5-0 Number of Sutures: 6 Technique: simple, interrupted Patient Tolerated Procedure: well, no complications Laceration #2 Consent Obtained: verbal consent Indication: laceration Site: hand Size (cm): 2 Description: linear Depth: simple, single layer Anesthetic Used: lidocaine 1% Anesthesia Technique: local infiltration Amount (mls): 4 Pre-repair: wound explored, irrigated extensively, deep structures intact Type of Sutures: nylon Size of Sutures: 5-0 Number of Sutures: 3 Technique: simple, interrupted Patient Tolerated Procedure: well, no complications Medical Decision Making - Medical Decision Making Vitals are stable. Neurovascular status intact in the left upper extremity. X- ray shows a linear lucency consistent with laceration injury near first interphalangeal joint palmar surface. This is consistent with clinical presentation as well as a laceration over the palmar aspect of the fourth metacarpal head. Lacerations are repaired. Patient was started on antibiotics given complicated wound of digit. Recommend he follow up with his doctor. Recommend he return here for any signs of infection or worsening symptoms. Disposition Clinical Impression: Laceration Disposition: HOME SELF-CARE Condition: Good Instructions (If sedation given, give patient instructions): Care For Your Stitches (ED), Laceration (ED) Additional Instructions: Please keep the area clean. Please follow-up with your doctor in one to 2 days. If you notice any signs of infection such as spreading or streaking redness, drainage, or fever return to the emergency room. Prescriptions: Cephalexin [Keflex] 500 mg PO Q6HR 5 Days #20 cap Is patient prescribed a controlled substance at d/c from ED?: No Referrals: Hi Lanier MD [Primary Care Provider] - 1-2 days Time of Disposition: 17:25
--- NOTE | 2020-02-12 16:26 | XR ---
EXAMINATION TYPE: XR hand complete LT DATE OF EXAM: 02/12/2020 CLINICAL HISTORY: Laceration injury with pain TECHNIQUE: Frontal, lateral and oblique images of the left hand are obtained. COMPARISON: None. FINDINGS: There is no acute fracture/dislocation evident in the left hand. The joint spaces in the l eft hand appear within normal limits. Linear lucency consistent with laceration injury near first int erphalangeal joint palmar surface. No radiodense foreign body at this level noted. IMPRESSION: As above.
== END 2020-02-12 17:58 | disposition home or self-care (01) ==
LOC: EC 15:29
DX: S61.012A Laceration without foreign body of left thumb without damage to nail, initial encounter (principal); S61.215A Laceration without foreign body of left ring finger without damage to nail, initial encounter; W29.8XXA Contact with other powered hand tools and household machinery, initial encounter; Y93.89 Activity, other specified; Y92.009 Unspecified place in unspecified non-institutional (private) residence as the place of occurrence of the external cause; Y99.0 Civilian activity done for income or pay
CPT/HCPCS: 73130; 99283; 12002; J2001

== ENCOUNTER 2023-03-26 09:41 | Emergency (ER) | payer BC ==
[2023-03-26 09:52] VITALS: RESP 18
[2023-03-26] MEDS ORDERED: SODIUM CHLORIDE 0.9% 1,000 ML IV ONE (10:44)
[2023-03-26 11:13] LABS: Basophils % (A) 1 %; Eosinophils # (A) 0.1 k/uL (0-0.7); Eosinophils % (A) 2 %; HCT 50.4 % (39.0-53.0); HGB 17.2 gm/dL (13.0-17.5); Lymphocytes # (A) 1.6 k/uL (1.0-4.8); Lymphocytes % (A) 21 %; MCH 32.1 pg (25.0-35.0); MCHC 34.1 g/dL (31.0-37.0); Mean Platelet Volume 6.7; Monocytes # (A) 0.4 k/uL (0-1.0); Monocytes % (A) 5 %; Neutrophils # (A) 5.3 k/uL (1.3-7.7); Neutrophils % (A) 70 %; Platelet Count 324 k/uL (150-450); RBC 5.36 m/uL (4.30-5.90); RDW 12.3 % (11.5-15.5); WBC 7.6 k/uL (3.8-10.6)
[2023-03-26 11:21] LABS: Appearance,Urine Clear (Clear); Bilirubin,Urine Negative (Negative); Blood,Urine Negative (Negative); Color,Urine Yellow; Glucose,Urine (UA) Negative (Negative); Ketones,Urine Negative (Negative); Leukocyte Esterase,Urine Negative (Negative); Nitrite,Urine Negative (Negative); PH, Urine 8.5 (5.0-8.0); Protein,Urine Trace (Negative); Specific Gravity,Urine 1.022 (1.001-1.035); Urobilinogen,Urine <2.0 mg/dL (<2.0)
[2023-03-26 11:25] LABS: ALT 58 U/L (4-49); AST 47 U/L (17-59); African American GFR (CKD) >90 (>60 ml/min/1.73 sqM); Albumin 4.6 g/dL (3.5-5.0); Alkaline Phosphatase 67 U/L (38-126); Anion Gap 11 mmol/L; Blood Urea Nitrogen 12 mg/dL (9-20); Calcium 9.9 mg/dL (8.4-10.2); Carbon Dioxide 24 mmol/L (22-30); Chloride 103 mmol/L (98-107); Glucose 95 mg/dL (74-99); Non-African American GFR(CKD) >90 (>60 ml/min/1.73 sqM); Potassium 4.6 mmol/L (3.5-5.1); Sodium 138 mmol/L (137-145); Total Protein 8.2 g/dL (6.3-8.2)
--- NOTE | 2023-03-26 11:46 | ED ---
General Adult HPI - General Chief complaint: Weakness Stated complaint: Weakness Time Seen by Provider: 03/26/23 09:53 Source: patient, RN notes reviewed Mode of arrival: ambulatory Limitations: no limitations - History of Present Illness Initial comments: 28-year-old male with no significant past medical history presents the emergency department with a chief complaint of generalized body spasms. He reports random spasms that will be painful that will come and go for the last 4 days. He denies any trauma or injury. He has never had this happen to him before. He reports he does not take any daily medications denies recent sick contacts. Denies any known fevers however did feel chilled last night for about 4 hours. Denies any chest pain or shortness of breath, nausea or vomiting, abdominal pain, numbness or tingling in his extremities. - Related Data Previous Rx's Medication Instructions Recorded Cephalexin [Keflex] 500 mg PO Q6HR 5 Days #20 cap 02/12/20 Cyclobenzaprine [Flexeril] 10 mg PO TID PRN #15 tab 03/26/23 Allergies Allergy/AdvReac Type Severity Reaction Status Date / Time No Known Allergies Allergy Verified 03/26/23 09:50 Review of Systems ROS Statement: Those systems with pertinent positive or pertinent negative responses have been documented in the HPI. ROS Other: All systems not noted in ROS Statement are negative. Past Medical History Past Medical History: No Reported History Additional Past Medical History / Comment(s): pericarditis History of Any Multi-Drug Resistant Organisms: None Reported Past Surgical History: No Surgical Hx Reported Additional Past Surgical History / Comment(s): L arm fracture with 2 settings with anesthesia. Past Anesthesia/Blood Transfusion Reactions: No Reported Reaction Past Psychological History: No Psychological Hx Reported Smoking Status: Never smoker Past Alcohol Use History: Occasional Past Drug Use History: None Reported - Past Family History Father Family Medical History: Hyperlipidemia, Hypertension Mother Additional Family Medical History / Comment(s): Recovering alcoholic, PTSD General Exam - General Exam Comments Initial Comments: General: Alert, in no acute distress Head: atraumatic normocephalic. Eyes PERRL, EOMI intact, mucous membranes moist Respiratory: Lungs clear to auscultation bilaterally Cardiovascular: Heart regular rate and rhythm Abdominal: Soft without guarding or rebound Extremities: Normal inspection with full range of motion and normal capillary refill Neuroogic: alert and oriented 3, CN II-XII intact, able to ambulate with steady gait Skin: warm dry and intact with normal color Limitations: no limitations Course Vital Signs 03/26/23 03/26/23 09:47 12:23 Temperature 98.3 F 98.0 F Pulse Rate 105 H 85 Respiratory 18 18 Rate Blood Pressure 115/74 122/83 O2 Sat by Pulse 100 100 Oximetry EKG Findings - EKG Comments: EKG Findings:: Interpreted the following: EKG performed at 11:10 rate 87 bpm normal sinus rhythm AR interval 158, QRS duration 94, QT/QTC 345/390 Medical Decision Making - Medical Decision Making Was pt. sent in by a medical professional or institution (, [facility], OCEAN EXPORT ACCOUNT MANAGER, urgent care, hospital, or penitentiary...) When possible be specific @ -[No] Did you speak to anyone other than the patient for history (EMS, parent, family, police, friend...)? What history was obtained from this source @ -[No] Did you review nursing and triage notes (agree or disagree)? Why? @ -[I reviewed and agree with nursing and triage notes] Were old charts reviewed (outside hosp., previous admission, EMS record, old EKG, old radiological studies, urgent care reports/EKG's, penitentiary records)? Report findings @ -[No old charts were reviewed] Differential Diagnosis (chest pain, altered mental status, abdominal pain women, abdominal pain men, vaginal bleeding, weakness, fever, dyspnea, syncope, headache, dizziness, GI bleed, back pain, seizure, CVA, palpatations, mental health, musculoskeletal)? @ -[not applicable] EKG interpreted by me (3pts min.). @ -[As above] X-rays interpreted by me (1pt min.). @ -[None done] CT interpreted by me (1pt min.). @ -[None done] U/S interpreted by me (1pt. min.). @ -[None done] What testing was considered but not performed or refused? (CT, X-rays, U/S, labs)? Why? @ -[None] What meds were considered but not given or refused? Why? @ -[None] Did you discuss the management of the patient with other professionals (professionals i.e. , [employer], OCEAN EXPORT ACCOUNT MANAGER, lab, RT, psych nurse, social media developer, thermostat maker, teacher, evp and chief operating officer, machine adjuster leader case trim)? Give summary @ -[No] Was smoking cessation discussed for >3mins.? @ -[No] Was critical care preformed (if so, how long)? @ -[No] Were there social determinants of health that impacted care today? How? (Homelessness, low income, unemployed, alcoholism, drug addiction, transportation, low edu. Level, literacy, decrease access to med. care, correction, rehab)? @ -[No] Was there de-escalation of care discussed even if they declined (Discuss DNR or withdrawal of care, Hospice)? DNR status @ -[No] What co-morbidities impacted this encounter? (DM, HTN, Smoking, COPD, CAD, Cancer, CVA, ARF, Chemo, Hep., AIDS, mental health diagnosis, sleep apnea, morbid obesity)? @ -[None] Was patient admitted / discharged? Hospital course, mention meds given and route, prescriptions, significant lab abnormalities, going to OR and other pertinent info. @ -Discharged. This is a 28-year-old male with no significant past medical history who presents the emergency department with a chief complaint of myalgias. Patient had a thorough history and physical exam performed. Physical exam essentially unremarkable. Her rate regular rate and rhythm, lungs clear to auscultation bilaterally abdomen soft nontender. Patient able to ambulate with steady gait. Patient had laboratory studies and EKG performed which were unremarkable. I discussed results in detail with the patient verbalized understanding and all questions were addressed. He is agreeable with the plan for discharge home. Recommend close follow-up with PCP in 1-2 days. He was provided a list of local PCPs in the area. Return precautions discussed at length. Case discussed with Dr. levi, ED attending who agrees with plan of care Undiagnosed new problem with uncertain prognosis? @ -[No] Drug Therapy requiring intensive monitoring for toxicity (Heparin, Nitro, Insulin, Cardizem)? @ -[No] Were any procedures done? @ -[No] Diagnosis/symptom? @ - Myalgias Acute, or Chronic, or Acute on Chronic? @ -Acute Uncomplicated (without systemic symptoms) or Complicated (systemic symptoms)? @ -Uncomplicated Side effects of treatment? @ -[No] Exacerbation, Progression, or Severe Exacerbation? @ -[No] Poses a threat to life or bodily function? How? (Chest pain, [place], [place], pneumonia, PE, COPD, DKA, ARF, appy, cholecystitis, CVA, Diverticulitis, Homicidal, Suicidal, threat to staff... and all critical care pts) @ -low likelihood - Lab Data Result diagrams: 03/26/23 11:05 03/26/23 11:05 Lab Results 03/26/23 03/26/23 03/26/23 Range/Units 11:05 11:05 11:05 WBC 7.6 (3.8-10.6) k/uL RBC 5.36 (4.30-5.90) m/uL Hgb 17.2 (13.0-17.5) gm/dL Hct 50.4 (39.0-53.0) % MCV 94.0 (80.0-100.0) fL MCH 32.1 (25.0-35.0) pg MCHC 34.1 (31.0-37.0) g/dL RDW 12.3 (11.5-15.5) % Plt Count 324 (150-450) k/uL MPV 6.7 Neutrophils % 70 % Lymphocytes % 21 % Monocytes % 5 % Eosinophils % 2 % Basophils % 1 % Neutrophils # 5.3 (1.3-7.7) k/uL Lymphocytes # 1.6 (1.0-4.8) k/uL Monocytes # 0.4 (0-1.0) k/uL Eosinophils # 0.1 (0-0.7) k/uL Basophils # 0.0 (0-0.2) k/uL Sodium 138 (137-145) mmol/L Potassium 4.6 (3.5-5.1) mmol/L Chloride 103 (98-107) mmol/L Carbon Dioxide 24 (22-30) mmol/L Anion Gap 11 mmol/L BUN 12 (9-20) mg/dL Creatinine 0.73 (0.66-1.25) mg/dL Est GFR (CKD-EPI)AfAm >90 (>60 ml/min/1.73 sqM) Est GFR (CKD-EPI)NonAf >90 (>60 ml/min/1.73 sqM) Glucose 95 (74-99) mg/dL Calcium 9.9 (8.4-10.2) mg/dL Total Bilirubin 1.0 (0.2-1.3) mg/dL AST 47 (17-59) U/L ALT 58 H (4-49) U/L Alkaline Phosphatase 67 (38-126) U/L Total Protein 8.2 (6.3-8.2) g/dL Albumin 4.6 (3.5-5.0) g/dL Urine Color Yellow Urine Appearance Clear (Clear) Urine pH 8.5 H (5.0-8.0) Ur Specific [place] 1.022 (1.001-1.035) Urine Protein Trace H (Negative) Urine Glucose (UA) Negative (Negative) Urine Ketones Negative (Negative) Urine Blood Negative (Negative) Urine Nitrite Negative (Negative) Urine Bilirubin Negative (Negative) Urine Urobilinogen <2.0 (<2.0) mg/dL Ur Leukocyte Esterase Negative (Negative) Disposition Clinical Impression: Muscle spasm Disposition: HOME SELF-CARE Condition: Stable Additional Instructions: Take Flexeril for your muscle aches and pains Please be sure to stay hydrated and drink 64oz of water daily Please return to the nearest emergency department if worsening symptoms Prescriptions: Cyclobenzaprine [Flexeril] 10 mg PO TID PRN #15 tab PRN Reason: Muscle Spasm Is patient prescribed a controlled substance at d/c from ED?: No Referrals: Hi Lanier MD [Primary Care Provider] - 1-2 days Time of Disposition: 11:57
[2023-03-26 12:39] VITALS: BP 122/83; PULSE 85; TEMP 98
== END 2023-03-26 12:26 | disposition home or self-care (01) ==
LOC: EC 09:41
DX: M62.838 Other muscle spasm (principal)
CPT/HCPCS: 36415; 80053; 81003; 85025; 93005; 96360; 99285

== ENCOUNTER 2024-02-15 13:41 | Emergency (ER) | payer BC ==
[2024-02-15 13:47] VITALS: RESP 18
[2024-02-15] MEDS: LIDOCAINE 1% INJ 10MG/ML (20 ML MDV) SQ ONE (14:04)
--- NOTE | 2024-02-15 14:52 | ED ---
Wound/Laceration HPI - General Chief Complaint: Wound/Laceration Stated Complaint: L thumb lac Time Seen by Provider: 02/15/24 13:49 Source: patient, RN notes reviewed Mode of arrival: ambulatory Limitations: no limitations - History of Present Illness Initial Comments: This is a 29-year-old male who presents to the emergency department for a laceration on his left hand. States that he cut it with a circular saw at work today. Pain and bleeding are controlled. Tetanus vaccine is up-to-date. - Related Data Previous Rx's Medication Instructions Recorded Cephalexin [Keflex] 500 mg PO Q6HR 5 Days #20 cap 02/12/20 Cyclobenzaprine [Flexeril] 10 mg PO TID PRN #15 tab 03/26/23 Allergies Allergy/AdvReac Type Severity Reaction Status Date / Time No Known Allergies Allergy Verified 02/15/24 13:43 Review of Systems ROS Statement: Those systems with pertinent positive or pertinent negative responses have been documented in the HPI. ROS Other: All systems not noted in ROS Statement are negative. Past Medical History Past Medical History: No Reported History Additional Past Medical History / Comment(s): pericarditis History of Any Multi-Drug Resistant Organisms: None Reported Past Surgical History: No Surgical Hx Reported Additional Past Surgical History / Comment(s): L arm fracture with 2 settings with anesthesia. Past Anesthesia/Blood Transfusion Reactions: No Reported Reaction Past Psychological History: No Psychological Hx Reported Smoking Status: Never smoker Past Alcohol Use History: Occasional Past Drug Use History: None Reported - Past Family History Father Family Medical History: Hyperlipidemia, Hypertension Mother Additional Family Medical History / Comment(s): Recovering alcoholic, PTSD General Exam Limitations: no limitations General appearance: alert, in no apparent distress Head exam: Present: atraumatic, normocephalic, normal inspection Respiratory exam: Present: normal lung sounds bilaterally. Absent: respiratory distress, wheezes, rales, rhonchi, stridor Cardiovascular Exam: Present: regular rate, normal rhythm, normal heart sounds. Absent: systolic murmur, diastolic murmur, rubs, gallop, clicks Extremities exam: Present: other (3 cm laceration between the left thumb and index finger. Visible subcutaneous tissue) Neurological exam: Present: alert, oriented X3, CN II-XII intact Psychiatric exam: Present: normal affect, normal mood Course Vital Signs 02/15/24 02/15/24 13:44 14:58 Temperature 98.2 F 98 F Pulse Rate 91 80 Respiratory 18 18 Rate Blood Pressure 143/75 121/77 O2 Sat by Pulse 97 100 Oximetry Procedures - Laceration Laceration #1 Consent Obtained: verbal consent Indication: laceration Site: hand Size (cm): 3 Description: linear Depth: simple, single layer Anesthetic Used: lidocaine 1% Anesthesia Technique: local infiltration Amount (mls): 5 Pre-repair: wound explored, irrigated extensively Type of Sutures: nylon Size of Sutures: 5-0 Number of Sutures: 6 Technique: simple, interrupted Medical Decision Making - Medical Decision Making This is a 29-year-old male who presents to the emergency department for a laceration. Was pt. sent in by a medical professional or institution? @ -No Did you speak to anyone other than the patient for history? @ -No Did you review nursing and triage notes? @ -Yes, and I agree, it is accurate with regards to the patient's symptoms. Were old charts reviewed? @ -No Differential Diagnosis? @ -Laceration, abrasion, burn, cellulitis, this is not meant to be an all- inclusive list. EKG interpreted by me (3pts min.)? @ -Not obtained X-rays interpreted by me (1pt min.)? @ -Not obtained CT interpreted by me (1pt min.)? @ -Not obtained U/S interpreted by me (1pt. min.)? @ -Not obtained What testing was considered but not performed? (CT, X-rays, U/S, labs)? Why? @ -None What meds were considered but not given? Why? @ -None Did you discuss the management of the patient with other professionals? @ -No Did you reconcile home meds? @ -No Was smoking cessation discussed for >3mins.? @ -No Was critical care preformed (if so, how long)? @ -No Were there social determinants of health that impacted care today? How? (Homelessness, low income, unemployed, alcoholism, drug addiction, transportation, low edu. Level, literacy, decrease access to med. care, assisted, rehab)? @ -No Was there de-escalation of care discussed even if they declined? (Discuss DNR or withdrawal of care, Hospice)? @ -No What co-morbidities impacted this encounter? (DM, HTN, Smoking, COPD, CAD, Cancer, CVA, Hep., AIDS, mental health diagnosis, sleep apnea, morbid obesity)? @ -None Was patient admitted / discharged? @ -Discharged. Laceration was cleansed and repaired with sutures. Tetanus vaccine is already up-to-date. He is advised to return in 7 to 10 days for suture removal. Advised ibuprofen and Tylenol as needed for pain relief. Patient discharged home in stable condition. Case discussed with ED attending Dr. Dunne. Return precautions reviewed in depth, the patient is instructed to return to the emergency department with any new, worsening, or concerning symptoms. Patient verbalized understanding. Undiagnosed new problem with uncertain prognosis? @ -None Drug Therapy requiring intensive monitoring for toxicity (Heparin, Nitro, Insulin, Cardizem)? @ -None Were any procedures done? @ -Laceration repair with sutures Diagnosis/symptom? @ -Laceration Acute, or Chronic, or Acute on Chronic? @ -Acute Uncomplicated (without systemic symptoms) or Complicated (systemic symptoms)? @ -Uncomplicated Side effects of treatment? @ -None Exacerbation, Progression, or Severe Exacerbation] @ -Not applicable Poses a threat to life or bodily function? @ -No Disposition Clinical Impression: Laceration Disposition: HOME SELF-CARE Instructions (If sedation given, give patient instructions): Care For Your Stitches (ED) Additional Instructions: Return to the emergency department with any new, worsening, or concerning symptoms and in 7-10 days for removal of the stitches. Alternate with ibuprofen and Tylenol as needed for pain relief. Is patient prescribed a controlled substance at d/c from ED?: No Referrals: Gavin Flores MD [Primary Care Provider] - 1-2 days Time of Disposition: 14:52
[2024-02-15 15:06] VITALS: BP 121/77; PULSE 80; TEMP 98
== END 2024-02-15 15:17 | disposition home or self-care (01) ==
LOC: EC 13:41
DX: S61.412A Laceration without foreign body of left hand, initial encounter (principal); W27.0XXA Contact with workbench tool, initial encounter; Y99.0 Civilian activity done for income or pay
CPT/HCPCS: 12002; 99282; J2003